=== PATIENT | female | born 1975 | race Caucasian/White ===

== ENCOUNTER 2020-10-01 21:05 | Emergency (ER) | payer OTHER, BC ==
[~2020-10-01] VITALS: Ht 162.6 cm; Wt 49.9 kg
[2020-10-01 21:30] VITALS: BP_SYST 113
[2020-10-01] MEDS ORDERED: NACL 0.9% 1,000 ML IV ONE (23:45)
[2020-10-02 00:07] LABS: BASOPHILS % (AUTO) 0.9 % (0.0-2.0); EOSINOPHILS # (AUTO) 0.1 K/uL (0.0-0.4); EOSINOPHILS % (AUTO) 2.2 % (0.0-4.0); HEMATOCRIT 35.4 % (36-48); HEMOGLOBIN 11.9 g/dL (12.0-16.0); LYMPHOCYTES # (AUTO) 2.6 K/uL (1.0-5.5); LYMPHOCYTES % (AUTO) 49.4 % (20.5-51.5); MEAN CORPUSCULAR HEMOGLOBIN 32 pg (27-31); MEAN CORPUSCULAR HGB CONC 34 % (32-36); MEAN CORPUSCULAR VOLUME 96 fL (79.0-98.0); MONOCYTES # (AUTO) 0.4 K/uL (0.0-1.0); MONOCYTES % (AUTO) 7.1 % (1.7-9.3); NEUTROPHILS # (AUTO) 2.1 K/uL (1.8-7.7); NEUTROPHILS % (AUTO) 40.4 % (40.0-70.0); PLATELET COUNT (AUTO) 199 K/uL (130-430); RED BLOOD CELL COUNT(AUTO) 3.69 MIL/uL (4.2-6.2); WHITE BLOOD COUNT (AUTO) 5.2 K/uL (4.8-10.8)
[2020-10-02 00:16] LABS: CALCIUM 8.8 mg/dL (8.4-11.0); CREATININE 0.69 mg/dL (0.55-1.30); POTASSIUM 3.8 mmol/L (3.5-5.1)
[2020-10-02 00:22] LABS: ALBUMIN 4.5 g/dL (3.4-4.8); TOTAL BILIRUBIN 0.7 mg/dL (0.0-1.0)
[2020-10-02] MEDS ORDERED: KETOROLAC TROMETHAMINE 30 MG VIAL ONE (02:44)
[2020-10-02] MEDS ORDERED: KETOROLAC TROMETHAMINE 30 MG VIAL IVP ONE (02:45)
[2020-10-02] MEDS ORDERED: KETOROLAC TROMETHAMINE 30 MG VIAL IM ONE (02:45)
[2020-10-02] MEDS ORDERED: IBUP-1969 PO (02:49)
[2020-10-02 03:05] VITALS: BP_SYST 104
== END 2020-10-02 03:05 | disposition home or self-care (01) ==
LOC: SED 21:05
DX: Z04.3 Encounter for examination and observation following other accident (principal); V49.9XXA Car occupant (driver) (passenger) injured in unspecified traffic accident, initial encounter; Y93.89 Activity, other specified; Y92.413 State road as the place of occurrence of the external cause; Y99.8 Other external cause status
CPT/HCPCS: 36415; 70450; 72125; 76376; 80053; 81025; 84703; 85025; 96360; 96372; 99285; J1885; J7030